=== PATIENT | female | born 1990 | race Caucasian/White ===

== ENCOUNTER 2020-07-14 09:34 | Outpatient (RCR) | payer OTHER, SELFPAY ==
[2020-07-13 11:12] LABS: Basophils Percent Auto 0.2 % (0.2-1.2); Eosinophils Absolute Auto 0.1 K/mm3 (0-0.3); Eosinophils Percent Auto 0.7 % (0-4.4); Hematocrit 32.9 % (37.0-47.0); Hemoglobin 11.2 g/dL (12.0-15.0); Immature Granulocyte Absolute 0.08 K/mm3 (0.00-0.031); Lymphocytes Absolute Auto 1.89 K/mm3 (0.9-3.2); Lymphocytes Percent Auto 23.1 % (18.3-44.2); Mean Corpuscular Hemoglobin 29.9 pg (26-34); Mean Corpuscular Volume 87.7 fl (80-100); Mean Platelet Volume 8.2 fl (7.4-10.4); Monocytes Absolute Auto 0.6 K/mm3 (0.1-0.6); Monocytes Percent Auto 7.6 % (2.6-8.5); Neutrophils Absolute Auto 5.5 K/mm3 (1.3-6.7); Neutrophils Percent Auto 67.4 % (45.5-73.1); Platelet Count Result 196 k/mm3 (150-375); Red Blood Count 3.75 M/mm3 (4.2-5.4); Red Cell Distribution Width 12.1 % (11.5-14.5); White Blood Count 8.2 K/mm3 (4.5-10.0)
[2020-07-13 11:23] LABS: Glucose 1 Hour PP 50gm Dose 95 mg/dL
[2020-07-13 12:04] LABS: HIV 1/2 Ab P24 Ag Result Negative (Negative)
[2020-07-14] MEDS: RHO(D) IMMUNE GLOBULIN 300 MCG SYRINGE IM (12:31)
== END 2020-07-14 09:35 | disposition home or self-care (01) ==
LOC: ANHLAB 09:34
PROVIDERS: Visit Provider Obstetrics & Gynecology
DX: Z29.13 Encounter for prophylactic Rho(D) immune globulin (principal); Z11.4 Encounter for screening for human immunodeficiency virus [HIV]; O36.0990 Maternal care for other rhesus isoimmunization, unspecified trimester, not applicable or unspecified; Z3A.00 Weeks of gestation of pregnancy not specified
CPT/HCPCS: 36415; 82947; 85025; 85461; 86703; 90384; 96372; G0432; J2790

== ENCOUNTER 2020-09-13 16:26 | Outpatient (RCR) | payer OTHER, SELFPAY ==
--- NOTE | ~2020-09-13 | US_ITS ---
EXAMINATION: US OB limited w BPP DATE: 09/13/2020 17:38 INDICATION: Biophysical profile, third trimester TECHNIQUE: Real-time pelvic ultrasound was performed. The interpreting radiologist was not present fo r the study. COMPARISON: None. FINDINGS: There is a single living fetus in vertex presentation. The placenta is anterior. heart rate is 143 beats per minute (bpm). The amniotic fluid index is 18.5 cm which is normal Biophysical profile performed by the technologist: breathing (30 sec sustained breathing in 30 minutes): 2 out of 2 movement (3 gross body movements in 30 minutes): 0 out of 2 tone (one episode of aoebtqe-gjrbjhakp-tdeelby limb movement): 2 out of 2 Amniotic fluid pocket (2 cm): 2 out of 2 Total score: 6 out of 8 IMPRESSION: 1. Single living fetus in vertex presentation. 2. Biophysical profile 6 out of 8. Reviewed, dictated and finalized at location A. [employer]
[2020-09-13 16:46] VITALS: BP 104/63; PULSE 83
[2020-09-13 18:04] VITALS: BP 104/63; PULSE 85
--- NOTE | 2020-09-13 18:18 | PC.NURSE ---
Spoke with Dr. Yeager regarding patient NTS and BPP. Orders to discharge to home with kick counts .
== END 2020-09-26 10:26 | disposition home or self-care (01) ==
LOC: ANHLDR 16:26
PROVIDERS: Visit Provider Obstetrics & Gynecology
DX: O36.8330 Maternal care for abnormalities of the fetal heart rate or rhythm, third trimester, not applicable or unspecified (principal); Z3A.00 Weeks of gestation of pregnancy not specified
CPT/HCPCS: 59025; 76815; 76819

== ENCOUNTER 2020-09-25 17:52 | Inpatient (IN) | payer OTHER, SELFPAY ==
[2020-09-25] VITALS (13 sets, daily range): BP systolic 85–114; BP diastolic 41–85; PULSE 66–108; RESP 18; TEMP 36.8; BMI 29.7
--- OUTSIDE RECORDS SUMMARY | 2020-09-25 19:27 | XMS_ITS ---
:1990 Author Care Team Providers Name Role Phone [facility] Primary Care Provider Unavailable Allergies Code Code System Name Reaction Severity Status Onset NKDA ? Medications Name Status Start Date Stop Date ? ? amoxicillin 500 mg capsule Unknown ? Not a vailable antacid/lido/nystatin/q-dryl Completed ? hydrocodone 5 mg-acetaminophen 325 mg Unknown ? Not available tablet medroxyprogesterone 150 mg/mL intramuscular suspension Unknown ? Not available Inject 1 mL every 3 months by intramuscular route. Nexplanon Unknown ? Not available Nexplanon 68 mg subdermal implant Completed ? 12/03/2016 NuvaRing 0.12 mg-0.015 mg/24 hr vaginal Completed ? 06/30/2018 tramadol 50 mg tablet Unknown ? Not availa ble Zofran 4 mg tablet Completed ? 04/26/2020 Take 2 tablets twice a day by oral route for 30 days. Notes: PNV; Iron Problems Name Status Onset Date Source ? Unknown 07/29/2018 ? Active 03/15/2020 ? Dysfunctional Uterine Bleeding Unknown ? E ncounter Milk Engorgement of Breast Unknown ? Encou nter Gestation Period, 34 Weeks Unknown ? Encou nter Procedures Date Name Performed by ? 12/03/2016 PRESS WRITER Procedure Information not avai lable Notes: nexplanon removal 12/01/2015 PRESS WRITER Procedure Information not avai lable Notes: ne
--- OUTSIDE RECORDS SUMMARY | 2020-09-25 19:27 | XMS_ITS | Encounter Summary ---
:1990 Author Reason for Visit return OB visit Assessment and Plan 1. Routine care Discussion Note: None recorded.Patient educational handouts: No information available. Plan of Care Reminders Provider Appointments Surgery Audrey Yeager MD 09/26/2020 7:00AM Lab None ? ? recorded. Referral None ? ? recorded. Procedures None ? ? recorded. Surgeries None ? ? recorded. Imaging None ? ? recorded. Medications No Medications Reported Notes: PNV; Iron Medications Administered None recorded. Vitals Weight Blood Pressure 168.2 lbs 118/70 mm[Hg] Results Lab Results None recorded. Allergies Code Code System Name Reaction Severity Onset NKDA ? ? ? Problems Name Status Onset Date Source ? Active 03/15/2020 ? Procedures Date Name Performed by ? 12/03/2016 COMFORT STATION ATTENDANT Procedure Information not avai lable Notes: nexplanon removal 12/01/2015 COMFORT STATION ATTENDANT Procedure Information not avai lable Notes: nex
--- OUTSIDE RECORDS SUMMARY | 2020-09-25 19:27 | XMS_ITS | Encounter Summary ---
[...] Administered None recorded. Vitals Weight Blood Pressure 164.8 lbs 108/68 mm[Hg] Results Lab Results None recorded. Allergies Code Code System Name Reaction Severity Onset NKDA ? ? ? Problems Name Status Onset Date Source ? Active 03/15/2020 ? Procedures Date Name Performed by ? 12/03/2016 INSPECTOR ROUGH CASTINGS Procedure Information not avai lable Notes: nexplanon removal 12/01/2015 INSPECTOR ROUGH CASTINGS Procedure Information not avai lable Notes: ne
--- OUTSIDE RECORDS SUMMARY | 2020-09-25 19:27 | XMS_ITS | Encounter Summary ---
[...] Administered None recorded. Vitals Weight Blood Pressure 169 lbs 112/70 mm[Hg] Results Lab Results None recorded. Allergies Code Code System Name Reaction Severity Onset NKDA ? ? ? Problems Name Status Onset Date Source ? Active 03/15/2020 ? Procedures Date Name Performed by ? 12/03/2016 PUBLIC WORKS MANAGER Procedure Information not avai lable Notes: nexplanon removal 12/01/2015 PUBLIC WORKS MANAGER Procedure Information not avai lable Notes: ne
--- OUTSIDE RECORDS SUMMARY | 2020-09-25 19:27 | XMS_ITS | Encounter Summary ---
:1990 Author Reason for Visit return OB visit Assessment and Plan 1. Routine care 2. Sterilization requested Discussion Note: None recorded.Patient educational handouts: No information available. Plan of Care Reminders Provider Appointments Surgery Audrey Yeager MD 09/26/2020 7:00AM Lab None ? ? recorded. Referral None ? ? recorded. Procedures None ? ? recorded. Surgeries None ? ? recorded. Imaging None ? ? recorded. Medications No Medications Reported Notes: PNV; Iron Medications Administered None recorded. Vitals Height Weight BMI Blood Pressure 5 ft 3.5 in 156 lbs 27.2 kg/m2 112/72 mm[Hg] Results Lab Results None recorded. Allergies Code Code System Name Reaction Severity Onset NKDA ? ? ? Problems Name Status Onset Date Source ? Active 03/15/2020 ? Procedures Date Name Performed by ? 12/03/2016 TIRE SERVICE SUPERVISOR Procedure Information not avai labchristoph Notes: nexplanon removal 12/01/2015 GY
--- OUTSIDE RECORDS SUMMARY | 2020-09-25 19:27 | XMS_ITS | Encounter Summary ---
:1990 Author Reason for Visit return OB visit Assessment and Plan 1. Routine care ? streptococcus group B, cul ture, vaginal or rectal Discussion Note: None recorded.Patient educational handouts: No information available. Plan of Care Reminders Provider Appointments Surgery Audrey Yeager, 09/26/2020 7:00AM Lab Streptococcus [facility] Group B, Culture, Vaginal 08/30/2020 or Rectal Referral None recorded. ? ? Procedures None recorded. ? ? Surgeries None recorded. ? ? Imaging None recorded. ? ? Medications No Medications Reported Notes: PNV; Iron Medications Administered None recorded. Vitals Weight Blood Pressure 165.2 lbs 120/70 mm[Hg] Results Lab Results None recorded. Allergies Code Code System Name Reaction Severity Onset NKDA ? ? ? Problems Name Status Onset Date Source ? Active 03/15/2020 ? Procedures Date Name Performed by ? 12/03/2016 MANAGER OF PURCHASING Procedure Inf
[2020-09-25 19:44] LABS: Basophils Percent Auto 0.2 % (0.2-1.2); Eosinophils Absolute Auto 0.1 K/mm3 (0-0.3); Eosinophils Percent Auto 0.9 % (0-4.4); Hematocrit 33.5 % (37.0-47.0); Hemoglobin 11.2 g/dL (12.0-15.0); Immature Granulocyte Absolute 0.04 K/mm3 (0.00-0.031); Immature Granulocyte Percent A 0.5 % (0-0.5); Lymphocytes Absolute Auto 1.95 K/mm3 (0.9-3.2); Lymphocytes Percent Auto 23.1 % (18.3-44.2); Mean Corpuscular HGB Conc 33.4 g/dl (32-36); Mean Corpuscular Hemoglobin 27.6 pg (26-34); Mean Corpuscular Volume 82.5 fl (80-100); Mean Platelet Volume 8.5 fl (7.4-10.4); Monocytes Absolute Auto 0.8 K/mm3 (0.1-0.6); Monocytes Percent Auto 9.5 % (2.6-8.5); Neutrophils Absolute Auto 5.5 K/mm3 (1.3-6.7); Neutrophils Percent Auto 65.8 % (45.5-73.1); Platelet Count Result 167 k/mm3 (150-375); Red Blood Count 4.06 M/mm3 (4.2-5.4); Red Cell Distribution Width 14.4 % (11.5-14.5); White Blood Count 8.4 K/mm3 (4.5-10.0)
--- NOTE | 2020-09-25 19:55 | LDADM ---
This patient, [place] Azevedo, was admitted to Labor/Delivery/Recovery 106 on 09/25/20 at 17:52. Plans for labor, pain management and were discussed with patient. Patient/family oriented to hospital policies and general routines including ID bracelet, bed and alarms, visiting hours, pain management, procedures, bathroom and other care routines, personal items, smoking policy, room service/diet and guest tray routines, security routines, and visiting hours. Patient/Family are encouraged to report perceived risks to care and to ask questions if they do not understand what they are told or what they should do. See OBIX for further documentation.
[2020-09-25] MEDS: OXYTOCIN 30 UNITS/NS 500 ML 30 UNITS/500 ML BAG IV CONT (20:46)
[2020-09-25] MEDS: LACTATED RINGERS 1,000 ML 125 ML IV CONT (20:46)
[2020-09-25 21:17] LABS: Amphetamine Screen Urine Negative (Negative); Barbiturate Screen Urine Negative (Negative); Benzodiazepines Screen Urine Negative (Negative); Cannabinoid Screen Urine Negative (Negative); Cocaine Screen Urine Negative (Negative); Methadone Screen Urine Negative (Negative); Opiate Screen Urine Negative (Negative); Phencyclidine Screen Urine Negative (Negative)
[2020-09-26] VITALS (87 sets, daily range): BP systolic 96–140; BP diastolic 60–96; PULSE 71–251; RESP 16–18; TEMP 36.4–37; O2SAT 96–100
[2020-09-26] MEDS: fentaNYL CITRATE INJ (*CRX) 100 MCG/2 ML VIAL 50 MCG IV PUSH (02:11)
--- NOTE | 2020-09-26 03:23 | WPDANESEPPF ---
Anes - Initial Pre Proc Eval Procedure: labor epidural Date/Time: 09/26/20 03:23 Surgeon: Audrey Yeager MD Pre Op Diagnosis: labor pain Pre Op Diagnosis: Contractions Patient Data Age: 29 Gender: F Height: 1.6 m Weight: 76 kg Last Vital Signs Temp 37.0 C 09/26/20 00:01 Pulse 84 09/26/20 03:22 Resp 16 09/26/20 00:01 BP 114/73 09/26/20 03:22 Pulse Ox 99 09/26/20 03:22 Allergies Allergy/AdvReac Type Severity Reaction Status Date / Time No Known Allergies Allergy Verified 08/31/20 14:47 Home Medications Medication Instructions Recorded Confirmed Type prenat.vits,keenan,fpb-gcgv-apbpm 1 tablet PO DAILY 08/31/20 09/25/20 History [ #2] Laboratory Tests 09/25/20 09/25/20 09/25/20 19:38 19:38 19:38 WBC 8.4 K/mm3 K/mm3 (4.5-10.0) RBC 4.06 M/mm3 L M/mm3 (4.2-5.4) Hgb 11.2 g/dL L g/dL (12.0-15.0) Hct 33.5 % L % (37.0-47.0) MCV 82.5 fl fl (80-100) MCH 27.6 pg pg (26-34) MCHC 33.4 g/dl g/dl (32-36) RDW 14.4 % % (11.5-14.5) Plt Count 167 k/mm3 k/mm3 (150-375) MPV 8.5 fl fl (7.4-10.4) Immature Gran % (Auto) 0.5 % % (0-0.5) Neut % (Auto) 65.8 % % (45.5-73.1) Lymph % (Auto) 23.1 % % (18.3-44.2) [place] % (Auto) 9.5 % H % (2.6-8.5) Eos % (Auto) 0.9 % % (0-4.4) Baso % (Auto) 0.2 % % (0.2-1.2) Lymph # (Auto) 1.95 K/mm3 K/mm3 (0.9-3.2) [place] # (Auto) 0.8 K/mm3 H K/mm3 (0.1-0.6) Eos # (Auto) 0.1 K/mm3 K/mm3 (0-0.3) Baso # (Auto) 0.0 K/mm3 K/mm3 (0.0-0.1) Abs Immat Gran (auto) 0.04 K/mm3 H K/mm3 (0.00-0.031) Absolute Neuts (auto) 5.5 K/mm3 K/mm3 (1.3-6.7) Absolute Nucleated RBC 0.0 K/mm3 K/mm3 (0.0-0.012) Nucleated RBC % 0.0 % % (0.0-0.2) Urine Opiates Screen Urine Methadone Screen Ur Barbiturates Screen Ur Phencyclidine Scrn Ur Amphetamine Screen U Benzodiazepines Scrn Urine Cocaine Screen U Cannabinoids Screen RPR Pending Blood Type O Negative Antibody Screen Positive Antibody Identification Pending Antigen Identification Pending BRETT, IgG Interpret Pending BRETT, Poly Interpret Negative BRETT, Complement Interp Pending 09/25/20 20:52 WBC RBC Hgb Hct MCV MCH MCHC RDW Plt Count MPV Immature Gran % (Auto) Neut % (Auto) Lymph % (Auto) [place] % (Auto) Eos % (Auto) Baso % (Auto) Lymph # (Auto) [place] # (Auto) Eos # (Auto) Baso # (Auto) Abs Immat Gran (auto) Absolute Neuts (auto) Absolute Nucleated RBC Nucleated RBC % Urine Opiates Screen Negative (Negative) Urine Methadone Screen Negative (Negative) Ur Barbiturates Screen Negative (Negative) Ur Phencyclidine Scrn Negative (Negative) Ur Amphetamine Screen Negative (Negative) U Benzodiazepines Scrn Negative (Negative) Urine Cocaine Screen Negative (Negative) U Cannabinoids Screen Negative (Negative) RPR Blood Type Antibody Screen Antibody Identification Antigen Identification BRETT, IgG Interpret BRETT, Poly Interpret BRETT, Complement Interp Patient hx anesthesia problems: none Family hx anesthesia problems: none [facility] Past Medical History Medical History (Updated 09/26/20 @ 03:24 by Khang Lewis DO) Anxiety Scoliosis Family History Family History (Updated 08/31/20 @ 14:49 by Bessy Hines RN) Father Diabetes mellitus Hypertension Mother Hypertension Grandparent Diabetes mellitus Soci
[2020-09-26] MEDS: LACTATED RINGERS 1,000 ML 125 ML IV CONT ×2 (03:55→03:56)
--- NOTE | 2020-09-26 04:26 | PM.IMHP ---
H&P: HPI History of Present Illness Date/Time: 09/26/20 04:26 Chief Complaint: contractions and leakage of fluid Narrative: [place] Azevedo is a 29 yo @ 39.2 who presented with contractions and concerns for leakage of fluid. ROM + was negative; contractions spaced out and she remained 4cm but was kept overnight as she was already scheduled for elective IOL. Her contractions were augmented with pitocin; she is now s/p epidural and comfortable. Her has been complicated by: - Undesired future fertility; plans for PP BTL (discussed on 07/19/20 @ 29.3wga) - Rh negative, s/p rhogam at 28wks Review of Systems Constitutional: Constitutional: Denies fever(s) and Denies headache(s) Eyes: Eyes: Denies blurry vision Cardiovascular: Cardiovascular: Denies chest pain and Denies palpitations Respiratory: Respiratory: Denies cough and Denies dyspnea Gastrointestinal: Gastrointestinal: Reports abdominal pain, Denies nausea and Denies vomiting Genitourinary: Genitourinary: Reports vaginal discharge Neurologic: Denies dizziness and Denies headache(s) Psychiatric: Psychiatric: Denies anxiety and Denies depression [facility] Past Medical History Medical History Anxiety Scoliosis Family History Family History Father Diabetes mellitus Hypertension Mother Hypertension Grandparent Diabetes mellitus Social History Social History Smoking status: Never smoker Substance use: former Spiritual care concerns: No Meds Home Medications and Allergies Home Medications Medication Instructions Recorded Confirmed Type prenat.vits,keenan,gaf-dzdz-sskgl 1 tablet PO DAILY 08/31/20 09/25/20 History [ #2] Allergies Allergy/AdvReac Type Severity Reaction Status Date / Time No Known Allergies Allergy Verified 08/31/20 14:47 Vital Signs Vital Signs - 24 hr 09/25/20 18:14 09/25/20 18:16 09/25/20 19:01 Temperature Pulse Rate 95 97 84 Respiratory Rate Blood Pressure 112/69 107/68 109/72 Pulse Oximetry 09/25/20 20:01 09/25/20 20:08 09/25/20 20:52 Temperature 36.8 C Pulse Rate 82 84 Respiratory Rate 18 Blood Pressure 114/72 100/67 Pulse Oximetry 09/25/20 21:01 09/25/20 21:31 09/25/20 22:01 Temperature Pulse Rate 73 108 H 76 Respiratory Rate Blood Pressure 99/52 L 100/85 92/51 L Pulse Oximetry 09/25/20 22:31 09/25/20 23:01 09/25/20 23:10 Temperature Pulse Rate 72 66 78 Respiratory Rate Blood Pressure 89/41 L 85/42 L 99/52 L Pulse Oximetry 09/25/20 23:31 09/26/20 00:01 09/26/20 00:31 Temperature 37.0 C Pulse Rate 70 82 85 Respiratory Rate 16 Blood Pressure 110/64 102/65 103/60 Pulse Oximetry 09/26/20 01:01 09/26/20 01:32 09/26/20 02:01 Temperature Pulse Rate 81 93 72 Respiratory Rate Blood Pressure 110/63 104/67 108/73 Pulse Oximetry 09/26/20 02:31 09/26/20 03:01 09/26/20 03:08 Temperature Pulse Rate 76 204 H 90 Respiratory Rate Blood Pressure 111/69 115/75 106/72 Pulse Oximetry 97 09/26/20 03:13 09/26/20 03:17 09/26/20 03:18 Temperature Pulse Rate 92 96 89 Respiratory Rate Blood Pressure 105/72 124/71 113/71 Pulse Oximetry 100 100 09/26/20 03:19 09/26/20 03:22 09/26/20 03:25 Temperature Pulse Rate 91 84 Respiratory Rate Blood Pressure 117/69 114/73 124/73 Pulse Oximetry 99 09/26/20 03:27 09/26/20 03:28 09/26/20 03:31 Temperature Pulse Rate 88 168 H Respiratory Rate Blood Pressure 118/78 119/76 Pulse Oximetry 100 09/26/20 03:32 09/26/20 03:34 09/26/20 03:37 Temperature Pulse Rate 80 Respiratory Rate Blood Pressure 112/67 Pulse Oximetry 100 100 09/26/20 03:39 09/26/20 03:40 09/26/20 03:42 Temperature Pulse Rate 106 H 251 H Respiratory Rate B
--- NOTE | 2020-09-26 04:42 | WPDHPUPDATE1 ---
History and Physical Update Update Date/Time: 09/26/20 04:42 History and Physical has been reviewed, including an updated exam of the patient. There are NO changes in the patient's condition. Risks, benefits, and alternatives have been discussed and questions answered. Patient agrees to proceed with procedure.
--- NOTE | 2020-09-26 06:21 | PM.OBPRVD ---
OB - Delivery Note Procedure Delivery date: 09/26/20 Induction method: per pitocin protocol Delivery augmentation: rupture of membranes Delivery monitor: external FHT and external uterine Route of delivery: Laceration Description: Perineal - 1st Degree Delivery repair: vicryl Specimen: No Quantitative Blood Loss (ml): 200 Anesthesia type: Epidural Disposition: floor Narrative: Patient progressed to complete dilation with desire to push. With great maternal effort she pushed for approximately 4 contractions and delivered the head over intact perineum. No nuchal cord was palpated. The shoulders and body delivered without complications. The had immediate cry. The was placed skin to skin on [facility]. The umbilical cord was then clamped and cut. A segment of cord was collected for cord gases. The remaining cord blood was collected for typing. With Pitocin running and gentle downward traction on the umbilical cord, the placenta delivered without complications. Bimanual massage showed good uterine tone and minimal bleeding. The cervix, vagina, perineum were examined for lacerations and a first-degree perineal laceration was noted. The laceration was repaired using 4 Vicryl in the normal fashion. Minimal bleeding was noted. Sponge, lap, instrument, needle counts were correct at the end the procedure. Mom and baby were left bonding in the birthing suite in a stable condition. [place] Baby Date of : 09/26/20 Time of : 06:06 Weeks of gestation at delivery: 39 Infant gender: Female Weight (pounds): 7 Weight (ounces): 8 presentation: vertex position: Left Occiput Anterior Placenta delivery description: Expressed cord vessel description: 3 Vessels score one minute: 9 score five minutes: 9
[2020-09-26] MEDS: OXYTOCIN 30 UNITS/NS 500 ML 30 UNITS/500 ML BAG 125 UNITS IV CONT (06:44)
[2020-09-26 07:10] LABS: Rapid Plasma Reagin Non-Reactive (NonReactive)
--- NOTE | 2020-09-26 09:22 | PC.NURSE ---
Consulted with patient, reviewed feeding cues, frequencies, duration of feedings, feeding elimination flow sheet, and signs of adequate intake. Reviewed positioning/alignment, holding breast and asymmetrical latch on. mom states she breastfed her last baby and feels very confident feeding. Instructed mother to call out for RN assistance if she is unable to latch for feeding or she has discomfort with nursing. Instructed feeding should be initiated three hours from start of last feeding or if feeding cues are noted before. Mom encouraged to call out for next feeding to have feeding assessed. Mother voiced understanding of information shared.
--- NOTE | 2020-09-26 13:48 | PC.NURSE ---
Consulted with patient, reviewed feeding cues, frequencies, duration of feedings, feeding elimination flow sheet, and signs of adequate intake. Demonstrated stimulation techniques to wake for feeding. Assisted with to breast. Reviewed positioning/alignment, holding breast and asymmetrical latch on. was able to latch correctly. Infant nursed eagerly, with steady draws and frequent swallowing noted. Reviewed signs of a correct latch, effective nursing and suck swallow ratio. was able to maintain latch without discomfort to mother. Nipple care reviewed. Instructed mother to call out for RN assistance if she is unable to latch for feeding or she has discomfort with nursing. Instructed feeding should be initiated three hours from start of last feeding or if feeding cues are noted before. Mother voiced understanding of information shared.
[2020-09-26] MEDS: IBUPROFEN 600 MG TABLET PO ×2 (13:51→20:19)
[2020-09-27] VITALS (12 sets, daily range): BP systolic 94–109; BP diastolic 57–73; PULSE 63–94; RESP 12–16; TEMP 36.2–36.9; O2SAT 95–99
[2020-09-27 05:17] LABS: Hematocrit 33.8 % (37.0-47.0)
--- NOTE | 2020-09-27 08:00 | WPDANLDPN2 ---
Anes-Prog Note L&D Date/Time: 09/27/20 08:00 Comfortable throughout: labor and delivery Neuraxial method: epidural Epidural/Spinal procedure site: clean & non-tender (epidural still in place for tubal procedure today, 09/27/20) Neuro status: Neuro function grossly intact. Cardiovascular status: normal Respiratory status: normal Airway patency: baseline Mental status: baseline Post-Op hydration status: normal Vital Signs: Last Vital Signs Temp 36.4 C L 09/26/20 20:45 Pulse 79 09/26/20 20:45 Resp 18 09/26/20 20:45 BP 102/60 09/26/20 20:45 Pulse Ox 97 09/26/20 20:45 Pain score (VAS): 0 Post-procedural complaints: none Patient feedback: Patient satisfied with anesthetic care. Other findings: epidural still in place for tubal ligation today 09/27/20
--- NOTE | 2020-09-27 09:16 | PC.NURSE ---
Consulted with patient, reviewed feeding cues, frequencies, duration of feedings, feeding elimination flow sheet, and signs of adequate intake. Demonstrated stimulation techniques to wake for feeding. at breast when I entered the room, encouraged mom to keep infant in tight to the breast and achieve deep latch each time. Reviewed positioning/alignment, holding breast and asymmetrical latch on. Infant is able to latch correctly. Infant nursed eagerly, with steady draws and frequent swallowing noted. Reviewed signs of a correct latch, effective nursing and suck swallow ratio. was able to maintain latch without discomfort to mother. Nipple care reviewed. Instructed mother to call out for RN assistance if she is unable to latch infant for feeding or she has discomfort with nursing. Instructed feeding should be initiated three hours from start of last feeding or if feeding cues are noted before. Mother voiced understanding of information shared.
--- NOTE | 2020-09-27 09:38 | SUR.PREOP ---
pt arrived to pre op with epidural catheter in place and taped.
--- NOTE | 2020-09-27 09:42 | P.PNOB_ITS ---
OB - PN: Subj Subjective Date/time seen: 09/27/20 09:21 PPD#1 Paola is doing well today. She reports her pain is well controlled. Her bleeding is getting supervisor cell room. She tolerated regular diet yesterday, NPO since midnight today. She is voiding and passing gas. She has ambulated w/o signs/symptoms of anemia. She is breast feeding. She denies fever, chills, CP, SOB, dizziness, DE LA O, vision changes, N/V, palpitations or dizziness. She desires to proceed with tubal ligation today. Epidural has remained in place. OB - PN: Obj Data Labs CBC & Chem 7: 09/27/20 04:58 Labs: Laboratory Results - last 24 hr 09/27/20 04:58 Hgb 11.0 L Hct 33.8 L OB - PN A/P Assessment and Plan (1) Normal vaginal delivery: Code(s): O80 - Encounter for full-term uncomplicated delivery Status: Acute (2) Request for sterilization: Code(s): Z30.2 - Encounter for sterilization Status: Acute Plan day: 1 Plan: routine care Comments: - Vitals/labs stable - Fundus firm at umbilicus - Proceed with tubal ligation; risks/benefits/alternatives discussed in length. Pt would like to proceed. Aware it is a permanent procedure. - Discharge home tomorrow. Time Spent With Patient Time: Total time spent is greater than 50% in coordination of care (as documented) at patient's floor/unit and/or counseling patient: Review of Systems Review of Systems: All systems reviewed & are unremarkable except as noted in HPI and below (HPI) Exam Const: General: cooperative, healthy appearing, comfortable and no acute distress Resp: Effort & Inspection: normal respiratory effort and able to speak in complete sentences Auscultation: clear to auscultation bilaterally Cardio: Rate: regular rate GI: Inspection: normal to inspection and non-distended GI Palp: Yes Soft to palpation and No Tenderness to palpation present (GI) Auscultation: normal bowel sounds : Other: fundus firm below umbilicus; normal lochia Back/Spine/Pelvis: Other: epidural in place w/o issue Skin: General skin exam: normal color Neuro: General: patient oriented x3 Extrem: General: normal to inspection Psych: Appearance: grossly normal Affect: normal affect Attitude: cooperative
--- NOTE | 2020-09-27 09:42 | WPDHPUPDATE1 ---
History and Physical Update Update Date/Time: 09/27/20 09:42 History and Physical has been reviewed, including an updated exam of the patient. There are NO changes in the patient's condition. Risks, benefits, and alternatives have been discussed and questions answered. Patient agrees to proceed with procedure ( bilateral tubal ligation).
--- NOTE | 2020-09-27 10:09 | WPDANESEPPF ---
Anes - Initial Pre Proc Eval Procedure: Operation Date: 09/27/20 10:30 Proposed Procedures p Post- Tubal Ligation - Audrey Yeager MD Date/Time: 09/27/20 10:09 Surgeon: Audrey Yeager MD Pre Op Diagnosis: Contractions Patient Data Age: 29 Gender: F Height: 5 ft 3 in Weight: 76 kg Last Vital Signs Temp 97.7 F 09/27/20 09:18 Pulse 73 09/27/20 09:18 Resp 14 09/27/20 09:18 BP 107/57 L 09/27/20 09:18 Pulse Ox 98 09/27/20 09:18 Allergies Allergy/AdvReac Type Severity Reaction Status Date / Time No Known Allergies Allergy Verified 08/31/20 14:47 Home Medications Medication Instructions Recorded Confirmed Type prenat.vits,keenan,ksy-lcwc-supom 1 tablet PO DAILY 08/31/20 09/25/20 History [ #2] acetaminophen [Mapap 650 mg PO Q6H PRN 10 Days #40 09/27/20 Rx (acetaminophen)] tablet docusate sodium 100 mg PO BID PRN 10 Days #20 cap 09/27/20 Rx ibuprofen 600 mg PO Q6H PRN 10 Days #40 09/27/20 Rx tablet oxycodone-acetaminophen [Percocet] 1 tablet PO Q4H PRN 3 Days #14 09/27/20 Rx tablet Laboratory Tests 09/27/20 04:58 Hgb 11.0 g/dL L g/dL (12.0-15.0) Hct 33.8 % L % (37.0-47.0) Patient hx anesthesia problems: none Family hx anesthesia problems: none PMFSH Past Medical History Medical History Anxiety Scoliosis Family History Family History Father Diabetes mellitus Hypertension Mother Hypertension Grandparent Diabetes mellitus Social History Social History Smoking status: Never smoker Substance use: former Spiritual care concerns: No Anes - Eval Final PreProcedure Day of Procedure 09/27/20 10:09 Patient weight: overweight Heart: regular rate and rhythm Lungs: clear to auscultation Airway: Mallampati scale class II Neurological: alert and oriented Last oral intake: >/= 8 hours ASA classification: II Emergent: no Anesthetic plan: proceed Anesthesia type and monitoring: general, regional epidural (use existing epidural; GA if needed) and standard monitoring Informed Consent: The patient's anesthetic plan and its attendant risks and benefits were discussed with the patient/family/POA. Questions were solicited and answers provided to the satisfaction of the patient/family/POA.
[2020-09-27] MEDS: LACTATED RINGERS 1,000 ML 30 ML IV CONT (10:15)
[2020-09-27] MEDS: LIDOCAINE HCL 1% LOCAL INJ 10 ML VIAL INFILTRATE (10:47)
--- NOTE | 2020-09-27 11:57 | SUR.PHASEI ---
5793 SBAR FAXED FLOOR NOTIFIED
--- NOTE | 2020-09-27 12:29 | PM.PROC ---
Procedure Note - Detailed Date of procedure: 09/27/20 Pre-op diagnosis: Contractions Undesired future fertility S/p normal vaginal delivery Post-op diagnosis: same Procedure performed: bilateral tubal ligation Description of procedure: Patient was taken to the operating room after informed consent was obtained. She was placed on the operating table in the supine position with her arms out. The previously placed epidural catheter was then used for anesthesia and she was made comfortable with sedation. She was then prepped and drained in the normal sterile fashion. A time out was performed and no antibiotics were indicated. Once adequate anesthesia was confirmed, the infraumbilical area was infiltrated with lidocaine. An infraumbilical incision was made using a scalpel and carried down to the underlying fascia. Once the fascia was identified, it was tented up and entered using Metzenbaum scissors. The peritoneum was identified and entered. The incision was extended laterally. A sponge on a stick was placed within the abdomen to keep the omentum out of the way. The patient was airplaned to her right and the left cornuea was easily identified. The left fallopian tube was grasped with a Sindy and tented up. 0 chromic was used to ligate both edges of the tube. The central mesosalpinx was incised using Metzenbaums and the proximal and distal edges of the fallopian tubes were ligated once again using 0 Chromic. The central portion of the tube was then cut free and sent to pathology. The raw edges of the mesosalpinx and tube were made hemostatic with bovie cautery. Good hemostasis was noted and the tube was released back into the abdomen. The same procedure was then performed on the patients right side without complications. Good hemostasis was noted. The fascial edges were grasped and reapproximated using 0 Vicryl. The subcutaneous tissue was made hemostatic with bovie cautery and reapproximated using 2-0 Vicryl. The skin was reapproximated using 4-0 Monocryl in a running subcuticular fashion. The patient was cleaned and skin glue was placed over the incision. Sponge, lap, instrument, and needle counts were correct at the end. Patient was awoken from sedation and taken to recovery with plans of return to and overnight stay. Anesthesia: MAC and epidural Surgeon: Audrey Yeager MD Estimated blood loss (mL): 10 Drains: No Packing: No Pathology: yes (right and left fallopian tubes) Complications: No immediate complications Condition: stable Disposition: floor
[2020-09-27] MEDS: MULTIVIT/MIN/PREN/FOL AC/IRON TABLET 1 TAB PO (13:37)
[2020-09-27] MEDS: IBUPROFEN 600 MG TABLET PO ×2 (13:37→19:41)
[2020-09-27] MEDS: ACETAMINOPHEN 325 MG TABLET 650 MG PO ×2 (13:38→19:42)
[2020-09-27] MEDS: oxyCODONE/ACETAMINOPHEN (*CRX) 5-325 MG TABLET 1 TABLET PO ×2 (15:09→23:19)
[2020-09-27] MEDS: ONDANSETRON INJ 4 MG/2 ML VIAL IV PUSH (15:11)
[2020-09-28] MEDS: IBUPROFEN 600 MG TABLET PO (05:13)
[2020-09-28] MEDS: oxyCODONE/ACETAMINOPHEN (*CRX) 5-325 MG TABLET 1 TABLET PO ×2 (05:13→09:14)
--- NOTE | 2020-09-28 07:44 | WPDANESPN ---
Anes - Prog Note Post-Op Date/Time: 09/28/20 07:44 Cardiovascular status: normal Respiratory status: normal Airway patency: baseline Mental status: baseline Post-Op hydration status: normal Vital Signs: Last Vital Signs Temp 36.7 C 09/27/20 19:48 Pulse 69 09/27/20 19:48 Resp 16 09/27/20 19:48 BP 103/71 09/27/20 19:48 Pulse Ox 97 09/27/20 19:48 Pain Score (VAS): 0 I/O: Intake & Output 09/27/20 09/27/20 09/28/20 15:59 23:59 07:59 Intake Total 1000 Balance 1000 Laboratory Tests 09/27/20 04:58 Post-procedural complaints: none Patient Feedback: Patient satisfied with anesthetic care.
[2020-09-28 08:10] VITALS: BP 94/64; PULSE 76; RESP 18; TEMP 36.9
[2020-09-28] MEDS: MULTIVIT/MIN/PREN/FOL AC/IRON TABLET 1 TAB PO (09:12)
[2020-09-28] MEDS: SIMETHICONE 80 MG TAB.CHEW PO (09:19)
[2020-09-28] MEDS: DOCUSATE SODIUM 100 MG CAPSULE PO (09:19)
--- NOTE | 2020-09-28 09:52 | PM.OBDSVD ---
DS: Admitting Diagnosis Admitting Diagnosis Admitting Diagnosis: contractions DS: Discharge Diagnosis Discharge Diagnosis (1) History of bilateral ligation of fallopian tubes: Code(s): Z98.51 - Tubal ligation status Status: Acute (2) Normal vaginal delivery: Code(s): O80 - Encounter for full-term uncomplicated delivery Status: Acute OB - DS: Summary OB Procedures : Ultrasound OB Procedures Intrapartum: Spontaneous Vag Delivery OB Procedures: : P.P. tubal ligation and Blood Type (baby is Rh negative) Peripartum Data Delivery Method: Natural Vaginal Laceration Description: Perineal - 1st Degree Procedures: Procedures Operation Date: 09/27/20 10:30 Actual Procedures Side Surgeon p Post- Tubal Ligation Audrey Yeager MD complications: none 1: Gender: Female Disposition of : home Status at Discharge Functional status at discharge: independent ambulation Overall status at discharge: patient is back to baseline Time Spent with Patient Time attestation: Total time spent providing and/or coordinating discharge services: Time spent: Less than 30 minutes Exam Const: General: cooperative, healthy appearing, comfortable and no acute distress Chest: Breast/axilla inspection: normal inspection of the breasts Resp: Effort & Inspection: normal respiratory effort and able to speak in complete sentences Cardio: Rate: regular rate GI: Inspection: normal to inspection and incision (supraumbilical incision c/d/i w/o erythema/drainage covered with skin glue) GI Palp: Yes Soft to palpation and Yes Tenderness to palpation present (GI) (appropriately) Auscultation: normal bowel sounds : Other: fundus firm below umbilicus Skin: General skin exam: normal color Neuro: General: patient oriented x3 Extrem: General: normal to inspection Psych: Appearance: grossly normal Affect: normal affect Attitude: cooperative DS: Data Data Completed and Pending Pending studies at discharge: Pending at discharge 09/27/20 11:10 Surgical [PTH] Routine Discharge Plan Discharge Attending physician on discharge: Audrey Yeager Consulting providers: Rajeev Mathews Discharging Clinician: Audrey Yeager Anticipated Discharge Date/Time: 09/28/20 12:00 Patient Disposition: Home, Self-Care Activity: may shower and pelvic rest Diet: regular Discharge Instructions: no heavy lifting greater than 10 pounds for 6 weeks Patient Instructions: Antibiotic Form Stand Alone Forms: General Discharge Information Follow-up/Referrals: Audrey Yeager MD [Physician] - 4 Weeks Discharge Medications: New acetaminophen [Mapap (acetaminophen)] 325 mg Tablet 650 mg PO Q6H PRN (Reason: Mild Pain (1-3) Or Headache) 10 Days Qty: 40 RF: 0 docusate sodium 100 mg Capsule 100 mg PO BID PRN (Reason: Constipation) 10 Days Qty: 20 RF: 0 ibuprofen 600 mg Tablet 600 mg PO Q6H PRN (Reason: Cramping) 10 Days Qty: 40 RF: 0 oxycodone-acetaminophen [Percocet] 5-325 mg tablet 1 tablet PO Q4H PRN (Reason: pain) 3 Days Qty: 14 RF: 0 Continued prenat.vits,keenan,nqz-fkiq-hzcdr Tablet 1 tablet PO DAILY 30 Days Qty: 30 RF: 0 Date of admission: 09/25/20 17:52 Primary Care Provider: PHYSICIAN,MUSIC CRITIC Admitting Provider: Audrey Yeager Attending physician on admission: Audrey Yeager Condition: Stable
--- NOTE | 2020-09-28 13:22 | PC.NURSE ---
0956 note; nurse at bedside; mother had at breast, cross-cradle hold, Reviewed positioning, alignment, use of c-hold, nose-to nipple latch on technique and importance of deep maintained latch for effective breast feeding. baby able to latch and maintain, and demonstrated rhythmic sucking. Mother used football position for second side, and baby again, nursed eagerly. Mother reports a strong breast feeding history with no major issues reported to nurse. She did state she tends to have lower milk production on her L side, but was able to exclusively breast feed her other 2 children. Reviewed frequency, duration, of feedings, waking infant if needed. Reminded how to use feeding log to monitor feedings, and wet/dirty diapers per day of age. Breast feeding pages highlighted in Mother Baby Guide, including LC contact information. Pt voiced understanding of information shared.
[2020-09-30 11:32] VITALS: BP 115/71; PULSE 77; RESP 20; TEMP 36.9; O2SAT 100
== END 2020-09-28 12:16 | disposition home or self-care (01) | DRG 798 ==
LOC: ANHLDR 09-26 07:27 → ANHOB2 09-26 09:10
PROVIDERS: Admitting Provider Obstetrics & Gynecology; Visit Provider Obstetrics & Gynecology
PROC: 0UB70ZZ Excision of Bilateral Fallopian Tubes, Open Approach (ICD-10-PCS; CPT 58605; principal; 2020-09-27 10:30)
DX: O70.0 First degree perineal laceration during delivery (principal); Z37.0 Single live birth; Z30.2 Encounter for sterilization; Z3A.39 39 weeks gestation of pregnancy
CPT/HCPCS: 36415; 80307; 84112; 85014; 85018; 85025; 86592; 86850; 86870; 86880; 86900; 86901; 86902; 86971; 88302; A9270; J2250; J2405; J2590; J2704; J2795; J3010; J7120

== ENCOUNTER 2021-01-11 09:18 | Emergency (ER) | payer OTHER, SELFPAY ==
--- NOTE | ~2021-01-11 | XR_ITS ---
EXAMINATION: XR toe 1st RT min 2V EXAM DATE: 01/11/2021 09:40 INDICATION: Hyperflexion injury, 1st MTP pain and swelling. Initial encounter. TECHNIQUE: Right 1st toe frontal, lateral and oblique projections obtained and reviewed. There is no prior study for comparison. FINDINGS: There are no acute right 1st toe fractures or dislocations identified. There is no subcuta neous gas. The soft tissue is unremarkable. There are no radiopaque foreign bodies. IMPRESSION: 1. Right 1st toe exam without acute osseous findings. Reviewed, dictated and finalized at location A.
[2021-01-11 09:23] VITALS: BP 108/68; PULSE 67; RESP 16; TEMP 36.5; O2SAT 99
--- NOTE | 2021-01-11 09:46 | ED.LOWEXIN ---
HPI - Extremity Injury (Lower) General Chief Complaint: Extremity Injury, Lower Stated Complaint: right foot injury Time Seen by Provider: 01/11/21 09:34 Source: patient, RN notes reviewed and old records reviewed Mode of arrival: ambulatory Limitations: no limitations History of Present Illness HPI Narrative: 30 year old female who presents to express care with complaints of slipping on carpet and hyperflexing right great toe then fell onto foot yesterday feeling pop of right great toe.. Patient states acute pain to the base of right great toe with any weight bearing with swelling present to area. Patient has been taking some Ibuprofen for her discomfort with pain 7/10 with weight bearing. Patient has strong pulses to her right foot with no tingling or numbness to her right foot. Patient is presently breast feeding. MD complaint: other (right big toe injury) Onset (ago): day(s) (occurred yesterday) Injury: Right: toes (right great toe) Type of Injury: hyperflexion Place: home Severity: moderate Severity scale (1-10): 7 Relieving factors: rest Exacerbating factors: weight bearing Context: fall Associated symptoms: swelling and able to partially bear weight Other symptoms: none Treatments prior to arrival: NSAIDS Related Data Home Medications Medication Instructions Recorded Confirmed No Home Medications 01/11/21 01/11/21 Allergies Allergy/AdvReac Type Severity Reaction Status Date / Time No Known Allergies Allergy Verified 01/11/21 09:42 Review of Systems Review of Systems: Narrative: CONSTITUTIONAL: Denies fever, chills, or sweats. EYES: Denies visual changes, redness, or discharge. ENT: Denies rhinorrhea, congestion, sore throat, or otalgia. CARDIOVASCULAR: Denies chest pain, palpitations, or edema. RESPIRATORY: Denies cough or dyspnea. GASTROINTESTINAL: Denies abdominal pain, nausea, vomiting, or diarrhea. GENITOURINARY: Denies dysuria or hematuria. SKIN: Denies rash or itching. MUSCULOSKELETAL: Denies back pain, positive for right great toe pain and recent injury or myalgia. NEUROLOGIC: Denies headache, numbness, or weakness. PSYCHIATRIC: Positive history of anxiety or depression. All systems reviewed & are unremarkable except as noted in HPI and below PMFSH Past Medical History Medical History (Updated 01/11/21 @ 10:08 by Grace Damon NP) Anxiety Scoliosis Surgical History Surgical History (Updated 01/11/21 @ 09:49 by Grace Damon NP) History of bunionectomy of left great toe Family History Family History Father Diabetes mellitus Hypertension Mother Hypertension Grandparent Diabetes mellitus Social History Social History (Updated 01/11/21 @ 10:26 by Grace Damon NP) Smoking status: Never smoker Alcohol intake: former Alcohol use details: former social use breast feeding at present Substance use: former Substance use type: marijuana Last use: Quit use prior to 1st Living arrangements: with family Gender identity (if verbalized by the patient): Female Spiritual care concerns: No Comments At time of signature, agree with nursing past medical, surgical, social and family history. There is no relevant family history pertinent to the presenting complaint Exam Narrative: Exam Narrative: GENERAL: Well-appearing, well-nourished, and in no acute distress. HEAD: Normocephalic, atraumatic. EYES: PERRLA and EOMI. ENT: Nares clear, no rhinorrhea or epistaxis. Mucous membranes moist. NECK: Supple. CHEST: Clear to auscultation. No respiratory distress. SAO2 99% on room air HEART: Regular rate and rhythm. No murmur heard. Normal peripheral pulses. ABDOMEN: Soft, nontender, nondistended, normal active bowel sounds. EXTREMITIES: Normal range of motion. No edema with exception to right great toe which has swelling and pain to base of toe, increase pain with any movement of toe or any weightbearing, st
== END 2021-01-11 10:20 | disposition home or self-care (01) ==
PROVIDERS: Emergency Provider Registered Nurse
DX: S93.501A Unspecified sprain of right great toe, initial encounter (principal); W01.0XXA Fall on same level from slipping, tripping and stumbling without subsequent striking against object, initial encounter; M41.9 Scoliosis, unspecified
CPT/HCPCS: 73660; 99213; G0463